=== PATIENT | male | born 1930 | race Caucasian/White ===

== ENCOUNTER 2017-08-09 07:24 | Emergency (ER) | payer OTHER ==
[~2017-08-09] VITALS: Ht 177.8 cm; Wt 78.7 kg
[~2017-08-09 07:24] MED LIST: ADULT LOW DOSE81 MG PO; ADVAIR 100-501 EACH INH; ASPIRIN325 PO; ASPIRIN81 M2 PO; ATIVAN0.5 M1 PO; ATIVAN0.5 MG PO; AUGMENTIN 875875 MG PO; AVELOX400 MG PO; AZITHROMYCIN 2250 MG PO; CEFUROXIME250 MG PO; CELEXA 20 MG TA20 M1 PO; CIPRO500 MG PO; CIPROFLOXACIN500 M3 PO; COMBIVENT INH; COZAAR 25 MG TA25 M1 PO; FLOMAX PO; FLOMAX0.4 MG PO; FOLIC ACID1 MG PO; LEVAQUIN 500 M500 M2 PO; LIPITOR10 MG PO; MOM PO; MUCINEX TA600 MG/TA1 PO; MULTIVITAMINS PO; MYLANTA TABLET1 TA1 PO; NORCO 10-325 T1 EACH PO; PREDNISONE 10 M10 MG PO; PREDNISONE 20 M20 MG PO; PROTONIX40 M1 PO; SIMETHICON CHEW80 M1 PO; TRANXENE; TYLENOL325 MG PO; VENTOLIN HFA 1818 GM INH; VICODIN 5-5001 EACH PO; ZOCOR40 MG PO
[2017-08-09] MEDS ORDERED: NORCO 10-325 T1 EACH PO (07:39)
[2017-08-09] MEDS ORDERED: CLORAZEPATE D3.75 M1 PO (07:41)
[2017-08-09] MEDS ORDERED: ONE DAILY1 EAC2 PO (07:41)
[2017-08-09] MEDS ORDERED: VITAMIN D1000 UNI1 PO (07:42)
[2017-08-09 08:01] LABS: HEMOGLOBIN 12.2 gm/dL (14.0-18.0); NUCLEATED RBCS 0 /100WBC
[2017-08-09 08:03] LABS: ABSOLUTE BASOPHILS 0.1 thou/uL (0.0-0.2); ABSOLUTE EOSINOPHILS 0.4 thou/uL (0.0-0.7); ABSOLUTE LYMPHOCYTES 1.4 thou/uL (0.8-5.3); ABSOLUTE NEUTROPHILS 6.7 thou/uL (1.6-8.1); BASOPHILS 1.1 %; HEMATOCRIT 35.7 % (42.0-52.0); LYMPHOCYTES 14.3 %; MCHC 34.2 g/dL (28.0-37.0); MONOCYTES 10.1 %; MPV 7.4 fl. (7.2-11.1); PLATELET COUNT* 252 thou/uL (150-400); POLYS 70.5 %; WBC 9.5 thou/uL (4.0-11.0)
[2017-08-09 08:10] LABS: ANION GAP 5 mmol/L (7-16); BUN 22 mg/dL (7-18); CALCIUM 9.1 mg/dL (8.5-10.1); CHLORIDE 105 mmol/L (98-107); CO2 27 mmol/L (21-32); CREATININE 1.4 mg/dL (0.6-1.3); GLUCOSE 120 mg/dL (70-99); POTASSIUM 4.1 mmol/L (3.5-5.1); SODIUM 137 mmol/L (136-145)
[2017-08-09 08:14] LABS: ALBUMIN 3.5 g/dL (3.4-5.0); ALKALINE PHOSPHATASE 72 U/L (46-116); LIPASE 106 U/L (73-393); SGOT 14 U/L (15-37); SGPT 15 U/L (30-65); TOTAL BILIRUBIN 0.4 mg/dL (<0.1-1.0); TOTAL PROTEIN 7.7 g/dL (6.4-8.2); TROPONIN-I LEVEL <0.06 ng/mL (<0.06)
[2017-08-09 08:25] LABS: URINE BLOOD NEGATIVE (Negative); URINE CLARITY CLEAR; URINE COLOR YELLOW; URINE GLUCOSE-RANDOM NEGATIVE (Negative); URINE KETONES TRACE (Negative); URINE LEUKOCYTES-REFLEX NEGATIVE (Negative); URINE NITRITE-REFLEX NEGATIVE (Negative); URINE PROTEIN NEGATIVE (Negative); URINE SPECIFIC GRAVITY >= 1.030 (1.005-1.030); URINE UROBILINOGEN 0.2 E.U./dl (0.2-1.0)
[2017-08-09 08:28] LABS: ICTOTEST (BILI CONFIRMATORY) Positive (Negative); URINE BILIRUBIN 1+ (Negative)
[2017-08-09] MEDS ORDERED: FLEXERIL PO (11:04)
[2017-08-09 11:22] VITALS: BP 153/69
--- NOTE | 2017-08-09 11:25 | EKG ---
[place] [address] ELECTROCARDIOGRAM REPORT Name: SIGIFREDO CHANCE Room: [facility]#: [id number] Admission: 08/09/17 Attend Phys: Discharge: 08/09/17 Date of : [birth year] Report #: [id number] THIS REPORT FOR: //name// [facility] ED Test Date: 2017-08-09 Test Time: 08:02:46 Pat Name: SIGIFREDO CHANCE Department: Room: Gender: M Change Advisor: Delisa BOYLE : 1930 Requested By: Manjit Dubon Order Number: [id number] MD: Luc Roach Measurements Intervals [place] Rate: 62 P: [place]: QRS: -48 QRSD: 105 T: 2 QT: 442 QTc: 449 Interpretive Statements Junctional rhythm Left anterior fascicular block Abnormal R-wave progression, early transition Left ventricular hypertrophy Compared to ECG 10/03/2016 14:59:12 Junctional rhythm now present Left anterior fascicular block now present Left ventricular hypertrophy now present Sinus bradycardia no longer present Electronically Signed On 08-09-2017 11:24:48 PRIME MINISTER by Luc Roach [email or web address] <ELECTRONICALLY SIGNED> By: Luc Roach MD, [facility] 08/09/17 1124 08 0802 Luc Roach MD, [facility] /EPI
== END 2017-08-09 11:24 | disposition home or self-care (01) ==
LOC: M.ERS 07:24
PROVIDERS: Family Medicine
DX: M54.89 Other dorsalgia (principal); R06.02 Shortness of breath; I10 Essential (primary) hypertension; F17.210 Nicotine dependence, cigarettes, uncomplicated; Z86.73 Personal history of transient ischemic attack (TIA), and cerebral infarction without residual deficits

== ENCOUNTER 2017-10-26 10:15 | Inpatient (IN) | payer OTHER ==
[~2017-10-26] VITALS: Ht 180.3 cm; Wt 79.8 kg
[~2017-10-26 10:15] MED LIST changes: +CLORAZEPATE D3.75 M1 PO; +FLEXERIL PO; +ONE DAILY1 EAC2 PO; +VITAMIN D1000 UNI1 PO
[2017-10-26 10:53] LABS: ABSOLUTE BASOPHILS 0.1 thou/uL (0.0-0.2); ABSOLUTE EOSINOPHILS 0.3 thou/uL (0.0-0.7); ABSOLUTE LYMPHOCYTES 1.7 thou/uL (0.8-5.3); ABSOLUTE MONOCYTES 0.7 thou/uL (0.0-1.2); ABSOLUTE NEUTROPHILS 5.6 thou/uL (1.6-8.1); BASOPHILS 0.9 %; EOSINOPHILS 3.8 %; HEMATOCRIT 37.7 % (42.0-52.0); HEMOGLOBIN 12.7 gm/dL (14.0-18.0); LYMPHOCYTES 20.3 %; MCH 29.3 pg (26.0-34.0); MCHC 33.6 g/dL (28.0-37.0); MONOCYTES 8.2 %; MPV 7.5 fl. (7.2-11.1); NUCLEATED RBCS 0 /100WBC; PLATELET COUNT* 275 thou/uL (150-400); POLYS 66.8 %; RBC 4.33 mil/uL (4.50-6.00); RDW-CV 14.3 % (10.5-14.5); WBC 8.4 thou/uL (4.0-11.0)
[2017-10-26 10:59] LABS: ANION GAP 7 mmol/L (7-16); BUN 18 mg/dL (7-18); CALCIUM 8.9 mg/dL (8.5-10.1); CHLORIDE 108 mmol/L (98-107); CO2 28 mmol/L (21-32); CREATININE 1.2 mg/dL (0.6-1.3); GLUCOSE 95 mg/dL (70-99); POTASSIUM 3.9 mmol/L (3.5-5.1); SODIUM 143 mmol/L (136-145)
[2017-10-26 11:05] LABS: APTT 27.3 Seconds (25.0-31.3); PROTIME 9.8 Seconds (9.20-11.50)
[2017-10-26 11:10] LABS: ALKALINE PHOSPHATASE 70 U/L (46-116); NT-PRO BRAIN NAT PEPTIDE 1056 pg/mL (<300); SGOT 16 U/L (15-37); SGPT 16 U/L (30-65); TOTAL BILIRUBIN 0.3 mg/dL (<0.1-1.0); TROPONIN-I LEVEL <0.06 ng/mL (<0.06)
--- NOTE | 2017-10-26 11:48 | NUR ---
PT RETURNED FROM CT, TOLERATED WELL
[2017-10-26 14:33] VITALS: BP 104/62
[2017-10-26 15:07] VITALS: BP 141/75
--- NOTE | 2017-10-26 15:27 | EKG ---
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 : 1930 Requested By: Claudia Mcneil Order Number: [id number] MD: Red Sandoval Measurements Intervals [place] Rate: 114 P: [place]: QRS: -57 QRSD: 111 T: 113 QT: 346 QTc: 477 Interpretive Statements Atrial fibrillation Incomplete left bundle branch block LVH with secondary repolarization abnormality Borderline prolonged QT interval Baseline wander in lead(s) V3 Compared to ECG 08/09/2017 08:02:46 Left bundle-branch block now present Early repolarization now present Junctional rhythm no longer present Left anterior fascicular block no longer present Electronically Signed On 10-26-2017 15:27:24 CDT by Red Sandoval [email or web address] <ELECTRONICALLY SIGNED> By: Red Sandoval MD, FAC 10/26/17 1527 1017 1017 Red Sandoval MD, [facility] /EPI
--- NOTE | 2017-10-26 16:17 | 2DMMODE ---
[place] [address] 2 D/M-MODE ECHOCARDIOGRAM Name: SIGIFREDO CHANCE Room: [address] IN Mag#: [id number] Admission: 10/26/17 Attend Phys: Gina Bender, Discharge: Date of : [birth year] Date of Service: 10/26/17 1616 Report #: [id number] THIS REPORT FOR: //name// APPROVED REPORT Study performed: 10/26/2017 15:34:26 EXAM: Comprehensive 2D, Doppler, and color-flow Echocardiogram Patient Location: In-Patient Room #: [facility] Status: routine BSA: 2.05 HR: 52 bpm BP: 104/62 mmHg Rhythm: NSR Other Information Study Quality: Good Indications Chest Pain 2D Dimensions LVEF(%): 65.57 (>50%) IVSd: 16.08 (7-11mm) LVOT Diam: 21.13 (18-24mm) LVDd: 47.18 mm PWd: 12.98 (7-11mm) Ascending Ao: 31.94 (22-36mm) LVDs: 30.19 (25-40mm) Aortic Root: 36.09 mm Maldonado's LVEF: 65.57 % Volumes Left Atrial Volume (Systole) LA ESV Index: 25.60 mL/m2 Aortic Valve AoV Peak Holden.: 1.25 m/s AO Peak Gr.: 6.22 mmHg LVOT Max P.33 mmHg AO Mean Gr.: 2.82 mmHg LVOT Mean P.25 mmHg LVOT Max V: 0.91 m/s AO V2 VTI: 23.13 cm LVOT Mean V: 0.50 m/s COLEEN (VTI): 2.87 cm2 LVOT V1 VTI: 18.92 cm Mitral Valve E/A Ratio: 1.32 [place] [address] 2 D/M-MODE ECHOCARDIOGRAM Name: SIGIFREDO CHANCE Room: [address] IN M.R.#: [id number] Admission: 10/26/17 Attend Phys: Gina Bender, Discharge: Date of : [birth year] Date of Service: 10/26/17 1616 Report #: [id number] MV Decel. Time: 234.13 ms MV E Max Holden.: 0.80 m/s MV PHT: 67.90 ms MVA (PHT): 3.24 cm2 TDI E/Lateral E': 11.43 E/Medial E': 7.27 Medial E' Holden.: 0.11 m/s Lateral E' Holden.: 0.07 m/s Pulmonary Valve PV Peak Holden.: 0.95 m/s PV Peak Gr.: 3.59 mmHg Tricuspid Valve TR Peak Gr.: 24.87 mmHg RVSP: 29.00 mmHg Left Ventricle The left ventricle is normal size. There is normal LV segmental wall motion. Mild concentric left ventricular hypertrophy. Left ventricular systolic function is normal. The left ventricular ejection fraction is within the normal range. LVEF is 55-60%. The left ventricular diastolic function is normal. Right Ventricle The right ventricle is normal size. The right ventricular systolic function is normal. Atria The left atrium size is normal. The right atrium size is normal. Aortic Valve The aortic valve is normal in structure. No aortic regurgitation is present. There is no aortic valvular stenosis. Mitral Valve The mitral valve is normal in structure. Trace mitral regurgitation. No evidence of mitral valve stenosis. Tricuspid Valve The tricuspid valve is normal in structure. Trace tricuspid regurgitation. The RVSP is ___29___ mmHg. Pulmonic Valve The pulmonary valve is normal in structure. [place] [address] 2 D/M-MODE ECHOCARDIOGRAM Name: LILLIANA CHANCEKenisha Hathaway Room: [address] IN .R.#: [id number] Admission: 10/26/17 Attend Phys: Gina Bender, Discharge: Date of : [birth year] Date of Service: 10/26/17 1616 Report #: [id number] Great Vessels The aortic root is normal in size. IVC is normal in size and collapses with >50% inspiration Pericardium There is no pericardial effusion. <Conclusion> The left ventricle is normal size. Mild concentric left ventricular hypertrophy. Left ventricular systolic function is normal. The left ventricular ejection fraction is within the normal range. LVEF is 55-60%. The left ventricular diastolic function is normal. The right ventricle is normal size. The left atrium size is normal. The aortic valve is normal in structure. The mitral valve is normal in structure. Trace mitral regurgitation. The tricuspid valve is normal in structure. Trace tricuspid regurgitation. The RVSP is ___29___ mmHg. IVC is normal in size and collapses with >50% inspiration There is no pericardial effusion. There is normal LV segmental wall motion. <ELECTRONICALLY SIGNED> By: Gelacio Robertson MD, FACC 10/26/17 1616 161 15 Gelacio Robertson MD, FACC /INF
--- NOTE | 2017-10-26 17:32 | NUR ---
SPOKE TO PT AND DAUGHTERS ABOUT PT CODE STATUS. ALL THREE STATE PT IS A DNR. DR ROLLINS PAGED FOR ORDERS.
--- NOTE | 2017-10-26 17:33 | NUR ---
PT WAS ADMITTED FROM ED VIA CART AROUND 1455. PT PLACED ON MONITOR. ADMISSION ASSESSMENT AND QUESTIONS COMPLETED. DAUGHTERS AT BEDSIDE. MEDS REVIEWED. WILL CONTINUE TO MONITOR.
[2017-10-26] MEDS ORDERED: TYLENOL325 MG PO (17:37)
[2017-10-26] MEDS ORDERED: SENOKOT8.6 MG PO (17:38)
--- NOTE | 2017-10-26 17:39 | NUR ---
PT FAMILY TOOK PT [facility] HOME
[2017-10-26 20:08] VITALS: BP 139/56
[2017-10-27] VITALS: BP 144/63
[2017-10-27 04:00] VITALS: BP 135/66
--- NOTE | 2017-10-27 05:26 | NUR ---
PT CARE ASSUMED AFTER REPORT. ASSESSMENT COMPLETE. SB ON MONITOR. PT IMPULSIVE, FORGETFUL, AND CONFUSED AT TIMES. FALL PRECAUTIONS IN PLACE INCLUDING BED ALARM. CALL LIGHT IN REACH. BED IN LOWEST POSITION. DENIES PAIN. PROGRESSING TOWARDS GOALS.
[2017-10-27 08:30] VITALS: BP 157/65
[2017-10-27 11:34] VITALS: BP 179/65
--- NOTE | 2017-10-27 11:51 | NUR ---
ASSUMED PT CARE AT 0700 PT IS ALERT AND ORIENTED X 4 PT IS IMPULSIVE AND IS A FALL RISK, PT HAS HISTORY OF MULTIPLE FALLS BED ALARM IS ON, PT IV LEAKING OBTAINED OTHER IV PLACEMENT THIS NURSE WAS NOTIFIED 30 MINUTUES AFTER PT IV STARTED BURNING ASSESSED IV IN LEFT WRIST IV INFILTRATED REMOVED IV APPLIED WARM AND COLD COMPRESSES PT STATES " IT WAS BURNING RIGHT AFTER YOU LEFT BUT I DIDN'T WANT TO CALL I WANTED TO GET THROUGH THIS BAG" THIS NURSE EDUCATED PT AND DAUGHTER THE IMPORTANCE OF NOTIFYING STAFF IMMEDIATELY TO PREVENT ANY POSSIBLE ISSUES WITH THE VEIN BOTH STATED UNDERSTANDING REASSESSED PT LEFT WRIST AFTER COMPRESSED EDEMA HAS SUBSIDED STILL SLIGHT EDEMA EDUCATED TO LEAVE COLD COMPRESS OFF FOR 20 MINUTES AND THEN REAPPY FOR ANOTHER 20 MINUTES AND THEN CALL THIS NURSE BOTH STATED UNDERSTANDING, PT IS SR ON THE MONITOR THIS NURSE SPOKE WITH DR ROLLINS OBTAINED ORDERS FOR PO ANTIBIOTICS AND TO LEAVE IV OUT, WILL CONTINUE TO MONITOR
--- NOTE | 2017-10-27 13:42 | NUR ---
CM ASSESSMENT: Pt is A&O. [place]. Known to this CM. Resides at the [facility], and plans to return at dc. Supportive children that are involved in POC. Hx of HH with [facility]. Hx of skilled at [facility]. Pt uses a walker for mobility. Independent with ADLs, family assist with cleaning and IDL has in house assistance options available through [employer]. Possible dc tomorrow. Following for dc needs.
--- NOTE | 2017-10-27 14:44 | NUR ---
Nutrition: Pt seen for nursing risk 2 points. Spoke with RN, who stated that pt is eating pretty well. Per [place], it doesn't appear that pt's wt has changed significantly. Usual wt is 180#. PMHx: dementia, UTI, COPD, CVA. MVI, aspirin, D3. Low risk at this time.
[2017-10-27 15:53] VITALS: BP 132/73
[2017-10-27 20:00] VITALS: BP 170/68
[2017-10-28] VITALS: BP 156/57
--- NOTE | 2017-10-28 01:19 | NUR ---
ALERT AND ORIENTED X 4, WATCHING TV. BED IN LOW POSITION, CALL LIGHT IN REACH, BED ALARM ON. EDUCATION CONT. CONCERNING ASKING FOR ASSISTANCE WHEN OUT OF BED AND THAT ALARM WILL SOUND. PATIENT EXPRESSED VERBAL UNDERSTANDING. HOME TOMORROW. NO COMPLAINTS. PO PAIN MEDS WITH HS MEDS WITH EFFECTIVE RELIEF. CONT. WITH PLAN OF CARE AT THIS TIME.
[2017-10-28 04:00] VITALS: BP 146/48
[2017-10-28 08:01] VITALS: BP 150/61
--- NOTE | 2017-10-28 09:08 | NUR ---
ORDER RECEIVED FOR "OT EVALUATE AND TREAT". ON ROOM ENTRY, PT DRESSED WITH DEFENSIVE LINE COACH OFF AND STATES THAT HE WILL BE DISCHARGED ONCE DAUGHTER IS ABLE TO PICK HIM UP. PER PHYSICAL THERAPY, PT IS I WITH ALL MOBILITY. PT STATING THAT HE HAS NO TROUBLE WITH BATHING/DRESSING. DOES HAVE A.E. CHECKED UE STRENGTH/ROM AND IS WFL. PT WITH NO FURTHER SKILLED THERAPY NEEDS.
[2017-10-28 09:54] VITALS: BP 150/61
[2017-10-28] MEDS ORDERED: LEVAQUIN 250 M250 MG PO (09:58)
[2017-10-28] MEDS ORDERED: NORCO 10-325 T1 EACH PO (11:13)
[2017-10-28] MEDS ORDERED: DOXYCYCLINE 10100 MG PO (11:13)
--- NOTE | 2017-10-28 11:50 | NUR ---
ORDERS RECIEVED PER FOR OKAY TO D/C HOME THIS SHIFT- NO IV TO D/C NOTED, ROTO MIXER OPERATOR D/C'D PRIOR TO D/C- D/C TEACHING/EDUCATION GIVEN TO PT PRIOR TO D/C WITH ALL QUESTIONS AND CONCERNSN ADDRESSED- DAUGHTER HERE AT TIME OF D/C WELL- WRITTEN EDUCATION PROVIDED TO PT AT TIME OF D/C- PT INSTRUCTED TO SHIRT CLOSER ABT AT PHARMACY TO BE CONTINUED, VERBAL UNDERSTANDING RECIVED PER PT AND DAUGHTER- ALL BELONGINGS PACKED AND ACCOUNTED FOR PER DAUGHTER AND SENT HOME AT TIME OF D/C- PT ESCORTED PER TECH WITH BELONGINGS VIA W/C TO DAUGHTERS VEHICLE- NOTED D/C TIME OF 1150- NO PROBLEMS TO NOTE AT TIME OF D/C
== END 2017-10-28 11:50 | disposition home or self-care (01) | DRG 391 ==
LOC: M.ERS 10:15 → M.2W 13:52 → M.TBA-ER 13:52 → M.2W 14:53
PROVIDERS: Personal Emergency Response Attendant; ADMIT Internal Medicine
PROC: B24BZZ4 Ultrasonography of Heart with Aorta, Transesophageal (ICD-10-PCS; principal; 2017-10-26)
DX: K21.9 Gastro-esophageal reflux disease without esophagitis (principal); J15.9 Unspecified bacterial pneumonia; E44.1 Mild protein-calorie malnutrition; I10 Essential (primary) hypertension; F03.90 Unspecified dementia, unspecified severity, without behavioral disturbance, psychotic disturbance, mood disturbance, and anxiety; F17.210 Nicotine dependence, cigarettes, uncomplicated; Z68.24 Body mass index [BMI] 24.0-24.9, adult; Z86.73 Personal history of transient ischemic attack (TIA), and cerebral infarction without residual deficits; Z87.81 Personal history of (healed) traumatic fracture; Z79.51 Long term (current) use of inhaled steroids; Z79.82 Long term (current) use of aspirin; Z79.899 Other long term (current) drug therapy

== ENCOUNTER 2018-03-25 15:57 | Inpatient (IN) | payer OTHER ==
[~2018-03-25] VITALS: Ht 180.3 cm; Wt 73.5 kg
[~2018-03-25 15:57] MED LIST changes: +DOXYCYCLINE 10100 MG PO; +LEVAQUIN 250 M250 MG PO; +SENOKOT8.6 MG PO
[2018-03-25 15:58] VITALS: BP 96/68
[2018-03-25 16:19] LABS: ABSOLUTE BASOPHILS 0.1 thou/uL (0.0-0.2); ABSOLUTE EOSINOPHILS 0.3 thou/uL (0.0-0.7); ABSOLUTE LYMPHOCYTES 2.2 thou/uL (0.8-5.3); ABSOLUTE MONOCYTES 0.7 thou/uL (0.0-1.2); BASOPHILS 1.4 %; EOSINOPHILS 3.6 %; HEMATOCRIT 39.2 % (42.0-52.0); HEMOGLOBIN 12.9 gm/dL (14.0-18.0); LYMPHOCYTES 23.6 %; MCH 28.7 pg (26.0-34.0); MCHC 32.9 g/dL (28.0-37.0); MCV 87.1 fL (80.0-100.0); MONOCYTES 7.2 %; MPV 7.3 fl. (7.2-11.1); NUCLEATED RBCS 0 /100WBC; PLATELET COUNT* 299 thou/uL (150-400); POLYS 64.2 %; RBC 4.51 mil/uL (4.50-6.00); RDW-CV 14.3 % (10.5-14.5); WBC 9.3 thou/uL (4.0-11.0)
[2018-03-25 16:28] LABS: ANION GAP 7 mmol/L (7-16); BUN 18 mg/dL (7-18); CALCIUM 8.2 mg/dL (8.5-10.1); CHLORIDE 104 mmol/L (98-107); CO2 27 mmol/L (21-32); CREATININE 1.3 mg/dL (0.6-1.3); GLUCOSE 111 mg/dL (70-99); POTASSIUM 4.3 mmol/L (3.5-5.1); SODIUM 138 mmol/L (136-145)
[2018-03-25 16:30] LABS: APTT 27.7 Seconds (25.0-31.3)
[2018-03-25 16:44] LABS: ALBUMIN 3.2 g/dL (3.4-5.0); ALKALINE PHOSPHATASE 65 U/L (46-116); CK-MB MASS 1.1 ng/mL (<0.5-3.6); LIPASE 120 U/L (73-393); MAGNESIUM 2.1 mg/dL (1.8-2.4); NT-PRO BRAIN NAT PEPTIDE 949 pg/mL (<300); SGOT 13 U/L (15-37); SGPT 16 U/L (30-65); TOTAL BILIRUBIN 0.3 mg/dL (<0.1-1.0); TOTAL PROTEIN 7.3 g/dL (6.4-8.2); TROPONIN-I LEVEL <0.06 ng/mL (<0.06)
[2018-03-25] MEDS ORDERED: DULOXETINE HCL30 MG PO (17:02)
[2018-03-25 17:36] VITALS: BP 127/73
[2018-03-25 17:45] VITALS: BP 130/81
[2018-03-25 20:55] VITALS: BP 118/75
[2018-03-26] VITALS: BP 118/49; BP 138/92
[2018-03-26 04:00] VITALS: BP 132/63
[2018-03-26 04:41] LABS: HEMATOCRIT 38.3 % (42.0-52.0); HEMOGLOBIN 12.8 gm/dL (14.0-18.0); MCH 28.9 pg (26.0-34.0); MCHC 33.3 g/dL (28.0-37.0); MCV 86.7 fL (80.0-100.0); MPV 7.7 fl. (7.2-11.1); RBC 4.42 mil/uL (4.50-6.00); RDW-CV 14.2 % (10.5-14.5)
[2018-03-26 05:33] LABS: ALBUMIN 3.1 g/dL (3.4-5.0); CALCIUM 8.3 mg/dL (8.5-10.1); CREATININE 1.3 mg/dL (0.6-1.3); POTASSIUM 3.9 mmol/L (3.5-5.1); TOTAL BILIRUBIN 0.4 mg/dL (<0.1-1.0); TOTAL PROTEIN 6.4 g/dL (6.4-8.2)
[2018-03-26 08:15] VITALS: BP 118/58
--- NOTE | 2018-03-26 10:36 | EKG ---
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: Delisa CAMPBELL : 1930 Requested By: Manjit Dubon Order Number: [id number] Reading MD: Luc Roach Measurements Intervals [place] Rate: 101 P: [place]: QRS: -49 QRSD: 90 T: 107 QT: 336 QTc: 436 Interpretive Statements Atrial fibrillation Left anterior fascicular block Abnormal R-wave progression, late transition Borderline repolarization abnormality Baseline wander in lead(s) III Compared to ECG 10/26/2017 10:17:46 rate slowed Electronically Signed On 03-26-2018 10:35:51 CDT by Luc Roach [email or web address] <ELECTRONICALLY SIGNED> By: Luc Roach MD, [facility] 03/26/18 1035 1601 1601 Luc Roach MD, [facility] /EPI
--- NOTE | 2018-03-26 10:39 | EKG ---
[place] [address] ELECTROCARDIOGRAM REPORT Name: SIGIFREDO CHANCE Room: [address] ADM IN M.R.#: [id number] Admission: 03/25/18 Attend Phys: Gina Bender MD Discharge: Date of : [birth year] Report #: [id number] THIS REPORT FOR: //name// [facility] Test Date: 2018-03-25 Test Time: 23:51:13 Pat Name: SIGIFREDO CHANCE Department: Room: [facility] Gender: M Sports Marketing Specialist: : 1930 Requested By: Manjit Dubon Order Number: [id number] MD: Luc Roach Measurements Intervals [place] Rate: 108 P: 69 WI: 144 QRS: -47 QRSD: 94 T: 130 QT: 331 QTc: 444 Interpretive Statements Sinus tachycardia Left anterior fascicular block Abnormal R-wave progression, late transition Repol abnrm suggests ischemia, lateral leads Artifact in lead(s) I,II,aVR,V1,V2,V3,V4,V5,V6 Electronically Signed On 03-26-2018 10:39:48 CDT by Luc Roach [email or web address] <ELECTRONICALLY SIGNED> By: Luc Roach MD, FAC 03/26/18 1039 2351 2351 Luc Roach MD, FAC /EPI
--- NOTE | 2018-03-26 10:47 | EKG ---
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 Cook Apprentice: RIKKI : 1930 Requested By: Manjit Dubon Order Number: [id number] Reading MD: Luc Roach Measurements Intervals [place] Rate: 105 P: -59 DC: 194 QRS: -48 QRSD: 93 T: 125 QT: 346 QTc: 458 Interpretive Statements atrial tachycardia with irregular rate Left anterior fascicular block Anterior infarct, old Borderline repolarization abnormality Electronically Signed On 03-26-2018 10:47:34 CDT by Luc Roach [email or web address] <ELECTRONICALLY SIGNED> By: Luc Roach MD, [facility] 03/26/18 1047 0430 0430 Luc Roach MD, FAC /EPI
[2018-03-26 11:58] VITALS: BP 109/71
[2018-03-26 16:20] VITALS: BP 122/77
[2018-03-26 20:36] VITALS: BP 128/79
[2018-03-27] VITALS: BP 139/85
[2018-03-27 04:00] VITALS: BP 124/72
[2018-03-27] MEDS ORDERED: CARDIZEM30 MG PO (12:05)
[2018-03-27] MEDS ORDERED: TRAMADOL 50 MG50 MG PO (12:05)
[2018-03-27] MEDS ORDERED: CEFDINIR300 MG PO (12:05)
[2018-03-27] MEDS ORDERED: LIDOPATCH1 EACH TOP (12:05)
[2018-03-27] MEDS ORDERED: ELIQUIS5 MG PO (12:05)
[2018-03-27 12:22] VITALS: BP 124/72
[2018-03-27 12:46] VITALS: BP 117/74
[2018-03-27 13:48] VITALS: BP 117/74
--- NOTE | 2018-03-29 21:13 | CON ---
[address] [address] CONSULTATION Name: CHANCESIGIFREDO R Room: [address] IN M.R.#: [id number] Admission: 03/25/18 Attend Phys: Gina Bender MD Discharge: 03/27/18 Date of : [birth year] Report #: [id number] THIS REPORT FOR: //name// CC: Gina Brizuela MD DATE OF SERVICE: 03/27/2018 TYPE OF REPORT: Cardiology consultation. HISTORY OF THE PRESENT ILLNESS: The patient is an 87-year-old single white male who was admitted to the hospital 2 days ago with chest pain. The history is obtained from the old records as well as the daughter who is present. The patient has had multiple hospitalizations here at [place]. He was actually seen by my partner, Dr. Sandoval back in September 2016 with chest pain. The pain was felt to be atypical for angina. He has a long history of PAD and has been followed by Dr. Reinoso. He has had stents in both legs. He was told in the past that he had a small stroke with some slurred speech that has not recurred. He was last here to [place] in September with chest pain, was felt to be related to dyspepsia. He has been told in the past he has an irregular heartbeat. Unfortunately, he continues to smoke. Recently when he would cough, he felt a sharp pain in his chest. He came to the hospital 2 days ago. The pain did not radiate. It is worse with coughing. He has had no fever or edema. He denied any increased shortness of breath. He is not very active. He actually falls occasionally. He does have a walker. He denied his heart beating irregular. He does have occasional lightheadedness. 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 He is hard of hearing, wears a hearing aid. He has a history of hypertension and PAD. MEDICATIONS: On admission consisted of losartan, aspirin and he uses an inhaler. ALLERGIES: He has no known drug allergies. FAMILY HISTORY: His father had a pacemaker. SOCIAL HISTORY: He is , lives in independent living in [place]. Smokes less than half pack of cigarettes a day. No alcohol abuse. He is retired from [employer]. REVIEW OF SYSTEMS: He has had a history of peptic ulcer disease. No liver disease. He has had his skin cancer removed in the past. No kidney problems. [place] [address] CONSULTATION Name: SIGIFREDO CHANCE Room: [address]#: [id number] Admission: 03/25/18 Attend Phys: Gina Bender MD Discharge: 03/27/18 Date of : [birth year] Report #: [id number] PHYSICAL EXAMINATION: GENERAL: Revealed an elderly male who appeared in no acute distress. VITAL SIGNS: He had a blood pressure of 120/70, pulse is 100 and he is afebrile. HEENT: He is anicteric. Conjunctivae pink. Mucous membranes appear dry. NECK: Veins do not appear distended. CHEST: Revealed distant breath sounds. CARDIOVASCULAR: Irregular rhythm. No significant murmur. ABDOMEN: Soft. EXTREMITIES: Had no edema. Dorsalis pedis pulse cannot be palpated. SKIN: Cool and dry. NEUROLOGICAL: Nonfocal. LYMPHATIC: No adenopathy. MUSCULOSKELETAL: No joint effusions. PSYCHIATRIC: Mood is appropriate. RADIOLOGICAL DATA: His ECG appears to show an atrial tachycardia with a variable response, left axis, septal Q-waves. Previous echocardiogram done in September showed left ventricular hypertrophy and ejection fraction 60%. His workup so far, he had a portable chest x-ray 2 days ago that showed scarring in both lungs and normal heart size. He actually had a CT scan of the chest using a PE protocol on admission 2 days ago that showed nonocclusive pulmonary artery thrombus, atherosclerosis, pleural scarring and hyperinflated lung disease. Venous duplex scan of his legs showed no DVT. Previous CT scan of the head done in September showed no acute abnormality. IMPRESSION AND RECOMMENDATIONS: 1. Atrial tachycardia. I would recommend rate control. I would recommend starting the patient on diltiazem. I would not anticoagulate the patient appears to be high risk for bleeding. 2. Hypertension. The patient has been on an adrenergic receptor binder. 3. Peripheral arterial disease with previous stents. 4. Previous transient ischemic attack. 5. Tobacco abuse. 6. Chronic obstructive pulmonary disease. 7. Chest pain. Suspect pleurisy. 8. 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 I would consider inferior vena cava filter. <ELECTRONICALLY SIGNED> By: Luc Roach MD, FACC 03/29/18 2113 1108 0020Dabilly Roach MD, FACC /nt
== END 2018-03-27 14:40 | disposition home health service (06) | DRG 308 ==
LOC: M.ERS 15:57 → M.TBA-ER 16:52 → M.2W 17:49
PROVIDERS: Family Medicine; ADMIT Internal Medicine
DX: I47.1 Supraventricular tachycardia (principal); I26.99 Other pulmonary embolism without acute cor pulmonale; E44.1 Mild protein-calorie malnutrition; J44.9 Chronic obstructive pulmonary disease, unspecified; F17.210 Nicotine dependence, cigarettes, uncomplicated; H91.90 Unspecified hearing loss, unspecified ear; I73.9 Peripheral vascular disease, unspecified; I11.0 Hypertensive heart disease with heart failure; I50.9 Heart failure, unspecified; Z95.820 Peripheral vascular angioplasty status with implants and grafts; Z86.73 Personal history of transient ischemic attack (TIA), and cerebral infarction without residual deficits; Z87.81 Personal history of (healed) traumatic fracture; Z89.022 Acquired absence of left finger(s); Z79.51 Long term (current) use of inhaled steroids; Z79.82 Long term (current) use of aspirin; Z79.899 Other long term (current) drug therapy; Z82.49 Family history of ischemic heart disease and other diseases of the circulatory system

== ENCOUNTER 2018-04-14 16:42 | Emergency (ER) | payer OTHER ==
[~2018-04-14] VITALS: Ht 180.3 cm; Wt 78.0 kg
[~2018-04-14 16:42] MED LIST changes: +CARDIZEM30 MG PO; +CEFDINIR300 MG PO; +DULOXETINE HCL30 MG PO; +ELIQUIS5 MG PO; +LIDOPATCH1 EACH TOP; +TRAMADOL 50 MG50 MG PO
[2018-04-14 17:06] LABS: ABSOLUTE BASOPHILS 0.1 thou/uL (0.0-0.2); ABSOLUTE EOSINOPHILS 0.3 thou/uL (0.0-0.7); ABSOLUTE LYMPHOCYTES 1.4 thou/uL (0.8-5.3); ABSOLUTE MONOCYTES 0.6 thou/uL (0.0-1.2); ABSOLUTE NEUTROPHILS 6.5 thou/uL (1.6-8.1); BASOPHILS 0.6 %; EOSINOPHILS 3.8 %; HEMATOCRIT 37.2 % (42.0-52.0); HEMOGLOBIN 12.3 gm/dL (14.0-18.0); LYMPHOCYTES 15.8 %; MCHC 33.1 g/dL (28.0-37.0); MCV 87.7 fL (80.0-100.0); MONOCYTES 7.1 %; MPV 7.7 fl. (7.2-11.1); NUCLEATED RBCS 0 /100WBC; PLATELET COUNT* 268 thou/uL (150-400); POLYS 72.7 %; RBC 4.24 mil/uL (4.50-6.00); RDW-CV 14.3 % (10.5-14.5)
[2018-04-14 17:18] LABS: APTT 28.9 Seconds (25.0-31.3); PROTIME 10.7 Seconds (9.20-11.50)
[2018-04-14 17:43] LABS: ANION GAP 9 mmol/L (7-16); BUN 20 mg/dL (7-18); CALCIUM 8.4 mg/dL (8.5-10.1); CHLORIDE 105 mmol/L (98-107); CO2 23 mmol/L (21-32); CREATININE 1.4 mg/dL (0.6-1.3); GLUCOSE 114 mg/dL (70-99); POTASSIUM 4.1 mmol/L (3.5-5.1); SODIUM 137 mmol/L (136-145)
[2018-04-14 17:54] LABS: ALBUMIN 3.3 g/dL (3.4-5.0); ALKALINE PHOSPHATASE 73 U/L (46-116); NT-PRO BRAIN NAT PEPTIDE 1573 pg/mL (<300); SGOT 18 U/L (15-37); SGPT 13 U/L (30-65); TOTAL BILIRUBIN 0.1 mg/dL (<0.1-1.0); TOTAL PROTEIN 7.5 g/dL (6.4-8.2); TROPONIN-I LEVEL <0.06 ng/mL (<0.06)
[2018-04-14 18:35] VITALS: BP 136/73
--- NOTE | 2018-04-15 10:54 | EKG ---
[place] [address] ELECTROCARDIOGRAM REPORT Name: SIGIFREDO CHANCE Mag Room: [facility]#: [id number] Admission: 04/14/18 Attend Phys: Discharge: 04/14/18 Date of : [birth year] Report #: [id number] THIS REPORT FOR: //name// [facility] ED Test Date: 2018-04-14 Test Time: 16:48:08 Pat Name: SIGIFREDO CHANCE Department: Room: Gender: M Business Development Representative: Delisa CAMPBELL : 1930 Requested By: Manjit Dubon Order Number: [id number] MD: Luc Roach Measurements Intervals [place] Rate: 118 P: [place]: QRS: -45 QRSD: 99 T: 107 QT: 320 QTc: 449 Interpretive Statements atrial tachycardia Left anterior fascicular block Minimal ST depression, lateral leads Compared to ECG 03/26/2018 04:30:27 no change Electronically Signed On 04-15-2018 10:54:26 CDT by Luc Roach [email or web address] <ELECTRONICALLY SIGNED> By: Luc Roach MD, [facility] 04/15/18 1054 1648 164 Luc Roach MD, [facility] /EPI
== END 2018-04-14 18:25 | disposition home or self-care (01) ==
LOC: M.ERS 16:42
PROVIDERS: Family Medicine
DX: R06.00 Dyspnea, unspecified (principal); F41.9 Anxiety disorder, unspecified; J44.9 Chronic obstructive pulmonary disease, unspecified; I11.0 Hypertensive heart disease with heart failure; I50.9 Heart failure, unspecified; I48.91 Unspecified atrial fibrillation; F17.210 Nicotine dependence, cigarettes, uncomplicated; Z86.73 Personal history of transient ischemic attack (TIA), and cerebral infarction without residual deficits

== ENCOUNTER 2018-08-07 23:39 | Emergency (ER) | payer BC ==
[~2018-08-07] VITALS: Ht 182.9 cm; Wt 73.4 kg
[2018-08-08 00:35] LABS: HEMATOCRIT 34.4 % (42.0-52.0); HEMOGLOBIN 11.3 gm/dL (14.0-18.0); MCH 27.8 pg (26.0-34.0); MCHC 32.8 g/dL (28.0-37.0); MCV 84.7 fL (80.0-100.0); MPV 7.3 fl. (7.2-11.1); NUCLEATED RBCS 0 /100WBC; PLATELET COUNT* 232 thou/uL (150-400); RBC 4.06 mil/uL (4.50-6.00); WBC 12.2 thou/uL (4.0-11.0)
[2018-08-08 00:48] LABS: ANION GAP 10 mmol/L (7-16); BUN 27 mg/dL (7-18); CALCIUM 8.8 mg/dL (8.5-10.1); CHLORIDE 102 mmol/L (98-107); CO2 25 mmol/L (21-32); CREATININE 1.5 mg/dL (0.6-1.3); GLUCOSE 126 mg/dL (70-99); POTASSIUM 4.6 mmol/L (3.5-5.1); SODIUM 137 mmol/L (136-145)
[2018-08-08 01:00] LABS: ALKALINE PHOSPHATASE 88 U/L (46-116); NT-PRO BRAIN NAT PEPTIDE 3344 pg/mL (<300); SGOT 12 U/L (15-37); SGPT 10 U/L (30-65); TOTAL BILIRUBIN 0.7 mg/dL (<0.1-1.0); TOTAL PROTEIN 7.3 g/dL (6.4-8.2); TROPONIN-I LEVEL <0.06 ng/mL (<0.06)
[2018-08-08 01:35] LABS: ABSOLUTE LYMPHOCYTES 0.9 thou/uL (0.8-5.3); ABSOLUTE MONOCYTES 0.7 thou/uL (0.0-1.2); ABSOLUTE NEUTROPHILS 10.6 thou/uL (1.6-8.1); GIANT PLATELETS RARE; PLATELET ESTIMATE ADEQUATE
[2018-08-08 01:36] LABS: ANISOCYTOSIS 1+
[2018-08-08] MEDS ORDERED: LEVAQUIN 500 M500 MG PO (03:10)
[2018-08-08 03:49] VITALS: BP 122/62
--- NOTE | 2018-08-08 16:29 | EKG ---
[place] [address] ELECTROCARDIOGRAM REPORT Name: SIGIFREDO CHANCE Room: [facility]#: [id number] Admission: 08/07/18 Attend Phys: Discharge: 08/08/18 Date of : [birth year] Report #: [id number] THIS REPORT FOR: //name// [facility] ED Test Date: 2018-08-08 Test Time: 00:42:26 Pat Name: SIGIFREDO CHANCE Department: Room: Gender: M Crt: MARTHA : 1930 Requested By: Noah Flores Order Number: [id number] MD: Gelacio Robertson Measurements Intervals [place] Rate: 117 P: [place]: QRS: -42 QRSD: 94 T: 43 QT: 375 QTc: 524 Interpretive Statements Atrial tachycardia Ventricular premature complex Left anterior fascicular block Abnormal R-wave progression, late transition Borderline T wave abnormalities Prolonged QT interval Compared to ECG 04/14/2018 16:48:08 Ventricular premature complex(es) now present T-wave abnormality now present Prolonged QT interval now present Electronically Signed On 08-08-2018 16:29:31 SLICING MACHINE OPERATOR by Gelacio Robertson [email or web address] <ELECTRONICALLY SIGNED> By: Gelacio Robertson MD, [facility] 08/08/18 1629 004 Gelacio Robertson MD, [facility] /EPI
== END 2018-08-08 03:53 ==
LOC: M.ERS 23:39
PROVIDERS: Emergency Medicine
DX: J18.9 Pneumonia, unspecified organism (principal); J44.9 Chronic obstructive pulmonary disease, unspecified; F03.90 Unspecified dementia, unspecified severity, without behavioral disturbance, psychotic disturbance, mood disturbance, and anxiety; I11.0 Hypertensive heart disease with heart failure; I50.9 Heart failure, unspecified; I48.91 Unspecified atrial fibrillation; F17.210 Nicotine dependence, cigarettes, uncomplicated; Z86.73 Personal history of transient ischemic attack (TIA), and cerebral infarction without residual deficits; W18.39XA Other fall on same level, initial encounter; Y93.89 Activity, other specified; Y92.89 Other specified places as the place of occurrence of the external cause; Y99.8 Other external cause status